=== PATIENT | male | born 1960 | race Caucasian/White ===

== ENCOUNTER 2020-05-09 18:52 | Inpatient (IN) | payer MEDICAID, SELFPAY ==
[2020-05-09 19:01] VITALS: BP 129/105; PULSE 121; RESP 18; TEMP 36.6; O2SAT 95; BMI 26.6
--- NOTE | 2020-05-09 19:10 | CT_ITS ---
EXAMINATION: CT ABDOMEN AND PELVIS WITH CONTRAST CLINICAL INFORMATION: Left upper quadrant pain, altered mental status, unclear history COMPARISON: None TECHNIQUE: Multidetector volumetric images were obtained from the superior aspect of the liver through the pubic symphysis following administration 85 mL of Omnipaque 350 intravenous contrast. Sagittal and coronal reformatted images were obtained on the technologist's workstation. Oral contrast: No This CT examination was performed using dose optimization techniques as appropriate, variously including the following: *Automated exposure control *Adjustment of mA and/or kV according to patient size (this includes techniques or standardized protocols for targeted exams where dose is matched to indication/reason for exam; i.e. extremities or head) *Use of iterative reconstruction technique DLP: 805 mGy-cm FINDINGS: LUNG BASES: Right lower lobe atelectasis/infiltrate is seen LIVER, GALLBLADDER, AND BILIARY TREE: The liver is normal in size, shape, and attenuation. No focal hepatic lesion or biliary ductal dilatation is present. The gallbladder is unremarkable with no evidence of radiopaque gallstones, gallbladder wall thickening, or obvious pericholecystic inflammatory changes. PANCREAS: Unremarkable. There is no evidence of pancreatitis. SPLEEN: Unremarkable. Tiny splenule is present. ADRENAL GLANDS: Unremarkable. KIDNEYS AND URETERS: The kidneys are normal in size, shape, and attenuation. No hydronephrosis, hydroureter, or calculi seen. No perinephric stranding. BLADDER: Unremarkable. GASTROINTESTINAL TRACT: The small and large bowel are unremarkable. The appendix is unremarkable. ABDOMINAL WALL: No significant hernia is appreciated. LYMPH NODES: Normal. VASCULAR: Unremarkable. PELVIC VISCERA: There is mild prostatic prominence. The seminal vesicles appear normal OSSEOUS STRUCTURES: Mild degenerative changes present throughout the spine most marked at L5-S1 with vacuum phenomena present CT/CT abdomen pelvis w con IMPRESSION: No acute abnormality in the abdomen pelvis. Right lower lobe atelectasis/infiltrate
--- NOTE | 2020-05-09 19:10 | ECG_ITS ---
Test Reason : ALTERED MENTAL Blood Pressure : / mmHG Vent. Rate : 114 BPM Atrial Rate : 114 BPM P-R Int : 138 ms QRS Dur : 080 ms QT Int : 346 ms P-R-T Axes : 069 037 016 degrees QTc Int : 476 ms Sinus tachycardia Otherwise normal ECG When compared with ECG of 03-OCT-2014 04:28, Vent. rate has increased BY 69 BPM Nonspecific T wave abnormality now evident in Inferior leads Referred By: Cydney Davis Electronically Signed By:Aba Reyes
--- NOTE | 2020-05-09 19:11 | CT_ITS ---
EXAMINATION: CT HEAD WITHOUT CONTRAST CLINICAL INFORMATION: Altered mental status COMPARISON: None TECHNIQUE: Contiguous axial imaging was performed from the skull base to vertex without intravenous administration of contrast. This CT examination was performed using dose optimization techniques as appropriate, variously including the following: *Automated exposure control *Adjustment of mA and/or kV according to patient size (this includes techniques or standardized protocols for targeted exams where dose is matched to indication/reason for exam; i.e. extremities or head) *Use of iterative reconstruction technique DLP: 682 mGy-cm FINDINGS: There is no evidence of acute intracranial hemorrhage or territorial infarction. No abnormal mass effect or midline shift is seen. [place] to white matter differentiation is well preserved. Periventricular and deep white matter hypodensities most consistent with chronic microangiopathy No extra-axial fluid collections are identified. There is mild prominence of the ventricles and sulci in keeping with underlying involutional change. There is no abnormal attenuation within the brain parenchyma. The osseous structures and soft tissues are normal. Mucosal thickening in the bilateral maxillary sinuses and ethmoid air cells CT/CT head/brain wo con IMPRESSION: No acute intracranial pathology. Mild microangiopathy and involutional change. Bilateral maxillary sinus and ethmoid air cell mucosal thickening.
--- NOTE | 2020-05-09 19:14 | ED.GENADULT ---
HPI - General Adult General Chief complaint: Altered Mental Status Stated complaint: abd pain Time Seen by Provider: 05/09/20 19:00 Source: EMS Mode of arrival: EMS Limitations: altered mental status History of Present Illness HPI narrative: Patient comes to the emergency room for unclear reason. According to EMS, the patient called EMS, the patient states that he called because he was feeling cold. According to EMS the patient called because he was having abdominal pain, on arrival patient denied abdominal pain. The patient stated to his nurse that he is seeing people. When I talked to him he denied it. Patient seems confused, very poor historian, answering questions inappropriately. For example, patient was asked if he knows where he is, patient answered yes, 200 dollars . Denies alcohol or drug use. Per patient's prior records, patient does have history of substance abuse. MD complaint: Altered mental status Related Data Allergies Allergy/AdvReac Type Severity Reaction Status Date / Time No Known Allergies Allergy Unverified 02/07/20 16:14 [No Known Allergies*] Review of Systems Review of Systems: Yes Unobtainable due to mental condition [facility] Past Medical History Medical History (Updated 05/10/20 @ 01:32 by Cydney Davis MD) Asthma Hyperlipidemia Substance abuse Social History Social History Advance Directives: No Advance Directives Information Provided: No Physical Exam Vital Signs: Vital Signs: Last Vital Signs Temp 98.0 F 05/10/20 00:45 Pulse 120 H 05/10/20 02:05 Resp 19 05/10/20 02:05 BP 118/75 05/10/20 02:05 Pulse Ox 99 05/10/20 02:05 Body Mass Index 26.6 Appearance: Alert. Oriented to person, no acute distress Eyes: Pupils equal, round and reactive to light. ENT: Pharynx normal. Poor dentition, dried mucosa Neck: Normal inspection. Neck supple. No lymph nodes noted. No crepitus CVS: Normal heart rate and rhythm. Pulses normal. Normal S1 and S2 Respiratory: No respiratory distress. Breath sounds normal. No Wheezing. No rales Abdomen: Soft , complaining of right upper quadrant pain, No rigidity. No distention. good BS x4 Skin: Skin warm and dry. Normal skin color. Normal skin turgor. Extremities: No lower extremity edema. No lower extremity edema. No Lacerations. No Rash Neuro: Cranial nerves 2-12 grossly intact, No slurred speech. Course Course Course Narrative: Patient being admitted. Patient remains altered, possibly secondary to urinary tract infection. Patient also has possible pneumonia which was regional is in the CT scan. Patient received levofloxacin which covers both, respiratory and UTI. At this time, patient's vitals within normal limits, blood pressure 127/85, heart rate 89, lactic acid 1.1. Sepsis is not suspected. Patient's troponin 1. Is elevated, no EKG changes. Second troponin pending. EKG 2. Has significant artifact but does not show any ST changes I discussed the patient with our hospitalist, it is unlikely that the patient's altered mental status is due to a UTI by itself, considering the patient's age. Our hospitalist Dr. Luna and I agreed that the patient needs a lumbar puncture. Patient was very combative and uncooperative for lumbar puncture, patient needed 150 mg of IV ketamine and 2 mg of Versed, patient tolerated well the sedation. Patient has already been admitted to hospitalist, the CSF fluid lab results are pending Patient's troponin 2. Is lower than the 1st troponin. Second EKG did not show any changes. Ammonia level 34, hepatic encephalopathy unlikely the cause of patient's altered mental status. Patient has elevated LFTs unclear of this are new versus old, we do not have any labs to compare to since 2007 Patient tested positive for COVID-19 Procedures Lumbar Puncture Time Out Performed: Yes Patient Position: right lateral decubitus Skin Prep: Povidone-Iodine 1% Local Anesthetic: lidocaine 1% Amount of anesthesia used (mL): 5 Spinal Needle Gauge: 22G Interspace Used: L4-L5 Fluid Initially Obtained: bloody Complications: traumatic tap Medical Decision Making Lab Data Result diagrams: 05/09/20 20:26 05/09/20 20:26 Labs: Lab Results 05/09/20 05/09/20 05/09/20 Range/Units 20:26 20:26 20:26 WBC 14.7 H (4.8-10.8) X10*3/uL RBC 5.67 (4.60-5.80) X10*6/uL Hgb 17.3 (14.0-18.0) g/dl Hct 52.5 H (42-52) % MCV 92.6 (80-98) fL MCH 30.5 (27.0-33.0) pg MCHC 33.0 (31.0-36.0) g/dl RDW 13.3 (11.0-16.0) % Plt Count 146 L (160-400) X10*3/uL MPV 11.2 (9.4-12.4) fL Immature Gran % (Auto) 0.5 H (0.0-0.4) % Neut % (Auto) 89.1 H (45-73) % Lymph % (Auto) 4.6 L (20-40) % [place] % (Auto) 5.6 (2-11) % Eos % (Auto) 0.1 (0-4) % Baso % (Auto) 0.1 (0-2) % Lymph # (Auto) 0.7 L (1.2-4.9) X10*3/uL [place] # (Auto) 0.8 (0.1-1.2) X10*3/uL Eos # (Auto) 0.0 (0.0-0.4) X10*3/uL Baso # (Auto) 0.0 (0.0-0.2) X10*3/uL Abs Immat Gran (auto) 0.08 H (0.00-0.03) X10*3/uL Absolute Neuts (auto) 13.1 H (2.0-8.3) X10*3/uL Absolute Nucleated RBC 0.000 (0.0-0.012) X10*3/uL Nucleated RBC % (auto) 0.0 (0.0-0.2) /100WBC PT 26.0 H (10.8-13.0) SEC INR 2.2 H (0.9-1.1) Sodium 149 H (135-145) mmol/L Potassium 4.5 (3.3-5.1) mmol/l Chloride 112 H (96-108) mmol/L Carbon Dioxide 19 L (22-29) mmol/L Anion Gap 23 H (12-20) BUN 42 H (9-16) mg/dL Creatinine 1.06 (0.5-1.4) mg/dL Estim Creat Clear Calc 68.5 Estimated GFR > 60 Random Glucose 159 H (60-115) mg/dL Lactic Acid (0.5-2.0) mmol/L Calcium 9.7 (8.4-10.2) mg/dL Total Bilirubin 5.4 H (0.0-1.0) mg/dL Direct Bilirubin 4.1 H (0.0-0.5) mg/dL AST 52 H (5-37) U/L ALT 75 H (0-40) U/L Alkaline Phosphatase 90 (39-117) U/L Ammonia (13-55) umol/L Troponin I High Sens (<3.5-35.0) ng/L Total Protein 8.8 H (6.5-8.0) g/dL Albumin 4.7 (3.5-5.0) g/dL Lipase (8-78) U/L Urine Color Urine Appearance Urine pH (5.0-8.0) Ur Specific [place] (1.005-1.025) Urine Protein (NEG-TRACE) MG/DL Urine Glucose (UA) (NEG) MG/DL Urine Ketones (NEG) MG/DL Urine Blood (NEG) Urine Nitrite (NEG) Ur Leukocyte Esterase (NEG) Urine RBC (0) /HPF Urine WBC (0-4) /HPF Ur Squamous Epith Cells /LPF Urine Bacteria /LPF Hyaline Casts /LPF Granular Casts /LPF Urine Opiates Screen (Not Detect) Ur Barbiturates Screen (Not Detect) Ur Phencyclidine Scrn (Not Detect) Ur Amphetamines Screen (Not Detect) U Benzodiazepines Scrn (Not Detect) Urine Cocaine Screen (Not Detect) U Marijuana (THC) Screen (Not Detect) Ethyl Alcohol mg/dL COVID-19 (NIC) (Negative) COVID-19 Clin Com 05/09/20 05/09/20 05/09/20 Range/Units 20:26 20:26 20:26 WBC (4.8-10.8) X10*3/uL RBC (4.60-5.80) X10*6/uL Hgb (14.0-18.0) g/dl Hct (42-52) % MCV (80-98) fL MCH (27.0-33.0) pg MCHC (31.0-36.0) g/dl RDW (11.0-16.0) % Plt Count (160-400) X10*3/uL MPV (9.4-12.4) fL Immature Gran % (Auto) (0.0-0.4) % Neut % (Auto) (45-73) % Lymph % (Auto) (20-40) % [place] % (Auto) (2-11) % Eos % (Auto) (0-4) % Baso % (Auto) (0-2) % Lymph # (Auto) (1.2-4.9) X10*3/uL [place] # (Auto) (0.1-1.2) X10*3/uL Eos # (Auto) (0.0-0.4) X10*3/uL Baso # (Auto) (0.0-0.2) X10*3/uL Abs Immat Gran (auto) (0.00-0.03) X10*3/uL Absolute Neuts (auto) (2.0-8.3) X10*3/uL Absolute Nucleated RBC (0.0-0.012) X10*3/uL Nucleated RBC % (auto) (0.0-0.2) /100WBC PT (10.8-13.0) SEC INR (0.9-1.1) Sodium (135-145) mmol/L Potassium (3.3-5.1) mmol/l Chloride (96-108) mmol/L Carbon Dioxide (22-29) mmol/L Anion Gap (12-20) BUN (9-16) mg/dL Creatinine (0.5-1.4) mg/dL Estim Creat Clear Calc Estimated GFR Random Glucose (60-115) mg/dL Lactic Acid 1.1 (0.5-2.0) mmol/L Calcium (8.4-10.2) mg/dL Total Bilirubin (0.0-1.0) mg/dL Direct Bilirubin (0.0-0.5) mg/dL AST (5-37) U/L ALT (0-40) U/L Alkaline Phosphatase (39-117) U/L Ammonia (13-55) umol/L Troponin I High Sens 113.8 H (<3.5-35.0) ng/L Total Protein (6.5-8.0) g/dL Albumin (3.5-5.0) g/dL Lipase 196 H (8-78) U/L Urine Color Urine Appearance Urine pH (5.0-8.0) Ur Specific [place] (1.005-1.025) Urine Protein (NEG-TRACE) MG/DL Urine Glucose (UA) (NEG) MG/DL Urine Ketones (NEG) MG/DL Urine Blood (NEG) Urine Nitrite (NEG) Ur Leukocyte Esterase (NEG) Urine RBC (0) /HPF Urine WBC (0-4) /HPF Ur Squamous Epith Cells /LPF Urine Bacteria /LPF Hyaline Casts /LPF Granular Casts /LPF Urine Opiates Screen (Not Detect) Ur Barbiturates Screen (Not Detect) Ur Phencyclidine Scrn (Not Detect) Ur Amphetamines Screen (Not Detect) U Benzodiazepines Scrn (Not Detect) Urine Cocaine Screen (Not Detect) U Marijuana (THC) Screen (Not Detect) Ethyl Alcohol mg/dL COVID-19 (NIC) (Negative) COVID-19 Clin Com 05/09/20 05/09/20 05/09/20 Range/Units 20:26 22:18 22:18 WBC (4.8-10.8) X10*3/uL RBC (4.60-5.80) X10*6/uL Hgb (14.0-18.0) g/dl Hct (42-52) % MCV (80-98) fL MCH (27.0-33.0) pg MCHC (31.0-36.0) g/dl RDW (11.0-16.0) % Plt Count (160-400) X10*3/uL MPV (9.4-12.4) fL Immature Gran % (Auto) (0.0-0.4) % Neut % (Auto) (45-73) % Lymph % (Auto) (20-40) % [place] % (Auto) (2-11) % Eos % (Auto) (0-4) % Baso % (Auto) (0-2) % Lymph # (Auto) (1.2-4.9) X10*3/uL [place] # (Auto) (0.1-1.2) X10*3/uL Eos # (Auto) (0.0-0.4) X10*3/uL Baso # (Auto) (0.0-0.2) X10*3/uL Abs Immat Gran (auto) (0.00-0.03) X10*3/uL Absolute Neuts (auto) (2.0-8.3) X10*3/uL Absolute Nucleated RBC (0.0-0.012) X10*3/uL Nucleated RBC % (auto) (0.0-0.2) /100WBC PT (10.8-13.0) SEC INR (0.9-1.1) Sodium (135-145) mmol/L Potassium (3.3-5.1) mmol/l Chloride (96-108) mmol/L Carbon Dioxide (22-29) mmol/L Anion Gap (12-20) BUN (9-16) mg/dL Creatinine (0.5-1.4) mg/dL Estim Creat Clear Calc Estimated GFR Random Glucose (60-115) mg/dL Lactic Acid (0.5-2.0) mmol/L Calcium (8.4-10.2) mg/dL Total Bilirubin (0.0-1.0) mg/dL Direct Bilirubin (0.0-0.5) mg/dL AST (5-37) U/L ALT (0-40) U/L Alkaline Phosphatase (39-117) U/L Ammonia (13-55) umol/L Troponin I High Sens (<3.5-35.0) ng/L Total Protein (6.5-8.0) g/dL Albumin (3.5-5.0) g/dL Lipase (8-78) U/L Urine Color [place] Urine Appearance CLEAR Urine pH 5.0 (5.0-8.0) Ur Specific [place] 1.025 (1.005-1.025) Urine Protein 1+ H (NEG-TRACE) MG/DL Urine Glucose (UA) 100 H (NEG) MG/DL Urine Ketones 15 (NEG) MG/DL Urine Blood 1+ H (NEG) Urine Nitrite POS H (NEG) Ur Leukocyte Esterase NEG (NEG) Urine RBC 1-4 (0) /HPF Urine WBC 1-4 (0-4) /HPF Ur Squamous Epith Cells TRACE /LPF Urine Bacteria 1+ /LPF Hyaline Casts 0-2 /LPF Granular Casts 1-4 /LPF Urine Opiates Screen Not Detected (Not Detect) Ur Barbiturates Screen Not Detected (Not Detect) Ur Phencyclidine Scrn Not Detected (Not Detect) Ur Amphetamines Screen Not Detected (Not Detect) U Benzodiazepines Scrn Not Detected (Not Detect) Urine Cocaine Screen Not Detected (Not Detect) U Marijuana (THC) Screen Not Detected (Not Detect) Ethyl Alcohol < 10 mg/dL COVID-19 (NIC) (Negative) COVID-19 Clin Com 05/09/20 05/09/20 05/09/20 Range/Units 23:55 23:55 23:55 WBC (4.8-10.8) X10*3/uL RBC (4.60-5.80) X10*6/uL Hgb (14.0-18.0) g/dl Hct (42-52) % MCV (80-98) fL MCH (27.0-33.0) pg MCHC (31.0-36.0) g/dl RDW (11.0-16.0) % Plt Count (160-400) X10*3/uL MPV (9.4-12.4) fL Immature Gran % (Auto) (0.0-0.4) % Neut % (Auto) (45-73) % Lymph % (Auto) (20-40) % [place] % (Auto) (2-11) % Eos % (Auto) (0-4) % Baso % (Auto) (0-2) % Lymph # (Auto) (1.2-4.9) X10*3/uL [place] # (Auto) (0.1-1.2) X10*3/uL Eos # (Auto) (0.0-0.4) X10*3/uL Baso # (Auto) (0.0-0.2) X10*3/uL Abs Immat Gran (auto) (0.00-0.03) X10*3/uL Absolute Neuts (auto) (2.0-8.3) X10*3/uL Absolute Nucleated RBC (0.0-0.012) X10*3/uL Nucleated RBC % (auto) (0.0-0.2) /100WBC PT (10.8-13.0) SEC INR (0.9-1.1) Sodium (135-145) mmol/L Potassium (3.3-5.1) mmol/l Chloride (96-108) mmol/L Carbon Dioxide (22-29) mmol/L Anion Gap (12-20) BUN (9-16) mg/dL Creatinine (0.5-1.4) mg/dL Estim Creat Clear Calc Estimated GFR Random Glucose (60-115) mg/dL Lactic Acid (0.5-2.0) mmol/L Calcium (8.4-10.2) mg/dL Total Bilirubin (0.0-1.0) mg/dL Direct Bilirubin (0.0-0.5) mg/dL AST (5-37) U/L ALT (0-40) U/L Alkaline Phosphatase (39-117) U/L Ammonia 34 (13-55) umol/L Troponin I High Sens 97.2 H (<3.5-35.0) ng/L Total Protein (6.5-8.0) g/dL Albumin (3.5-5.0) g/dL Lipase (8-78) U/L Urine Color Urine Appearance Urine pH (5.0-8.0) Ur Specific [place] (1.005-1.025) Urine Protein (NEG-TRACE) MG/DL Urine Glucose (UA) (NEG) MG/DL Urine Ketones (NEG) MG/DL Urine Blood (NEG) Urine Nitrite (NEG) Ur Leukocyte Esterase (NEG) Urine RBC (0) /HPF Urine WBC (0-4) /HPF Ur Squamous Epith Cells /LPF Urine Bacteria /LPF Hyaline Casts /LPF Granular Casts /LPF Urine Opiates Screen (Not Detect) Ur Barbiturates Screen (Not Detect) Ur Phencyclidine Scrn (Not Detect) Ur Amphetamines Screen (Not Detect) U Benzodiazepines Scrn (Not Detect) Urine Cocaine Screen (Not Detect) U Marijuana (THC) Screen (Not Detect) Ethyl Alcohol mg/dL COVID-19 (NIC) Positive A (Negative) COVID-19 Clin Com See Note Imaging Data CT scan - head: Radiologist's impression: There is no evidence of acute intracranial hemorrhage or territorial infarction. No abnormal mass effect or midline shift is seen. [place] to white matter differentiation is well preserved. Periventricular and deep white matter hypodensities most consistent with chronic microangiopathy No extra-axial fluid collections are identified. There is mild prominence of the ventricles and sulci in keeping with underlying involutional change. There is no abnormal attenuation within the brain parenchyma. The osseous structures and soft tissues are normal. Mucosal thickening in the bilateral maxillary sinuses and ethmoid air cells CT/CT head/brain wo con IMPRESSION: No acute intracranial pathology. Mild microangiopathy and involutional change. Bilateral maxillary sinus and ethmoid air cell mucosal thickening. CT scan - abdomen: Radiologist's impression: LUNG BASES: Right lower lobe atelectasis/infiltrate is seen LIVER, GALLBLADDER, AND BILIARY TREE: The liver is normal in size, shape, and attenuation. No focal hepatic lesion or biliary ductal dilatation is present. The gallbladder is unremarkable with no evidence of radiopaque gallstones, gallbladder wall thickening, or obvious pericholecystic inflammatory changes. PANCREAS: Unremarkable. There is no evidence of pancreatitis. SPLEEN: Unremarkable. Tiny splenule is present. ADRENAL GLANDS: Unremarkable. KIDNEYS AND URETERS: The kidneys are normal in size, shape, and attenuation. No hydronephrosis, hydroureter, or calculi seen. No perinephric stranding. BLADDER: Unremarkable. GASTROINTESTINAL TRACT: The small and large bowel are unremarkable. The appendix is unremarkable. ABDOMINAL WALL: No significant hernia is appreciated. LYMPH NODES: Normal. VASCULAR: Unremarkable. PELVIC VISCERA: There is mild prostatic prominence. The seminal vesicles appear normal OSSEOUS STRUCTURES: Mild degenerative changes present throughout the spine most marked at L5-S1 with vacuum phenomena present CT/CT abdomen pelvis w con IMPRESSION: No acute abnormality in the abdomen pelvis. Right lower lobe atelectasis/infiltrate ECG Data Attestation: I personally reviewed and interpreted this ECG as follows: (Heart rate 114, sinus tachycardia, QTC 476, no ST segment depressions or elevations. EKG 2: Heart rate 92, no ST changes, poor quality EKG, QTC 442 ) Critical Care Time Critical Care Time Total Critical Care Time: 60 Discharge Plan Discharge Clinical Impression: Acute UTI, Elevated LFTs, COVID-19 Altered mental status Qualifiers: Altered mental status type: unspecified Qualified Code(s): R41.82 - Altered mental status, unspecified Pneumonia Qualifiers: Pneumonia type: due to unspecified organism Laterality: unspecified laterality Lung location: unspecified part of lung Qualified Code(s): J18.9 - Pneumonia, unspecified organism Patient Disposition: Admitted As Inpatient
[2020-05-09 20:00] VITALS: BP 119/87; PULSE 113; RESP 18; TEMP 36.6; O2SAT 96
[2020-05-09] MEDS: 0.9 % Sodium Chloride 1,000 ML 999 ML IVCONT ×2 (20:29→21:46)
[2020-05-09 20:36] LABS: Basophils Percent Auto 0.1 % (0-2); Eosinophils Percent Auto 0.1 % (0-4); Hematocrit 52.5 % (42-52); Hemoglobin 17.3 g/dl (14.0-18.0); Imm Gran Abs Auto 0.08 X10*3/uL (0.00-0.03); Imm Gran Pct Auto 0.5 % (0.0-0.4); Lymphocytes Absolute Auto 0.7 X10*3/uL (1.2-4.9); Lymphocytes Percent Auto 4.6 % (20-40); MANUAL DIFF FLAG NO; Mean Corpuscular Hemoglobin 30.5 pg (27.0-33.0); Mean Corpuscular Volume 92.6 fL (80-98); Mean Platelet Volume 11.2 fL (9.4-12.4); Monocytes Absolute Auto 0.8 X10*3/uL (0.1-1.2); Monocytes Percent Auto 5.6 % (2-11); Neutrophils Absolute Auto 13.1 X10*3/uL (2.0-8.3); Neutrophils Percent Auto 89.1 % (45-73); Platelet Count 146 X10*3/uL (160-400); Red Blood Count 5.67 X10*6/uL (4.60-5.80); Red Cell Distribution Width 13.3 % (11.0-16.0); SCAN SMEAR FLAG 1; White Blood Count 14.7 X10*3/uL (4.8-10.8)
[2020-05-09 20:44] LABS: INTERNATIONAL NORM RATIO 2.2 (0.9-1.1)
[2020-05-09 20:57] LABS: Lactic Acid 1.1 mmol/L (0.5-2.0)
[2020-05-09 20:58] LABS: Ethanol < 10 mg/dL
[2020-05-09 21:00] LABS: Alanine Aminotransferase 75 U/L (0-40); Albumin Level 4.7 g/dL (3.5-5.0); Alkaline Phosphatase 90 U/L (39-117); Anion Gap 23 (12-20); Aspartate Amino Transferase 52 U/L (5-37); Bilirubin Direct 4.1 mg/dL (0.0-0.5); Bilirubin Total 5.4 mg/dL (0.0-1.0); Blood Urea Nitrogen 42 mg/dL (9-16); Calcium 9.7 mg/dL (8.4-10.2); Carbon Dioxide 19 mmol/L (22-29); Chloride 112 mmol/L (96-108); Creatinine Clr Calc Pharmacy 68.5; Estimated Glomerular Filt Rate > 60; Glucose Random 159 mg/dL (60-115); Potassium 4.5 mmol/l (3.3-5.1); Sodium 149 mmol/L (135-145); Total Protein 8.8 g/dL (6.5-8.0)
[2020-05-09 21:12] LABS: Troponin-I High Sensitivity 113.8 ng/L (<3.5-35.0)
[2020-05-09 21:15] LABS: Lipase 196 U/L (8-78)
--- NOTE | 2020-05-09 21:31 | ECG_ITS ---
Test Reason : REPEAT Blood Pressure : / mmHG Vent. Rate : 092 BPM Atrial Rate : 093 BPM P-R Int : 000 ms QRS Dur : 074 ms QT Int : 358 ms P-R-T Axes : 000 -02 044 degrees QTc Int : 442 ms Poor data quality Normal sinus rhythm When compared with ECG of 09-MAY-2020 20:04, No significant changes seen Referred By: Cydney Davis Electronically Signed By:Aba Reyes
[2020-05-09] MEDS: iohexoL 350 MG/ML 100 ML INFUS..BTL IV (21:35)
[2020-05-09 22:00] VITALS: BP 127/85; PULSE 93; RESP 18; TEMP 36.5; O2SAT 95
[2020-05-09] MEDS: levoFLOXacin/D5W 500 MG/100 ML PIGGYBACK 100 MG IV (22:18)
[2020-05-09 22:35] LABS: Glucose Urine UA 100 MG/DL (NEG); Leukocyte Esterase Urine NEG (NEG); Nitrite Urine POS (NEG); Specific Gravity - Urine 1.025 (1.005-1.025); Urine Blood 1+ (NEG); Urine Ketones 15 MG/DL (NEG); Urine Protein 1+ MG/DL (NEG-TRACE)
[2020-05-09 22:38] LABS: Appearance Urine CLEAR; Color Urine AMBER
[2020-05-09 22:48] LABS: Amphetamine Screen Urine Not Detected (Not Detect); Barbiturates, Urine Not Detected (Not Detect); Benzodiazepines Screen Urine Not Detected (Not Detect); Cannabinoid Screen Urine Not Detected (Not Detect); Cocaine Screen Urine Not Detected (Not Detect); Opiate Screen Urine Not Detected (Not Detect); Phencyclidine Screen Urine Not Detected (Not Detect)
[2020-05-09 23:01] LABS: Bacteria Urine 1+ /LPF; Hyaline Casts Urine 0-2 /LPF; Squamous Epithelial Cell Urine TRACE /LPF
[2020-05-10] VITALS (14 sets, daily range): BP systolic 105–135; BP diastolic 62–88; PULSE 64–138; RESP 16–22; TEMP 36.2–37.2; O2SAT 96–100
[2020-05-10 00:16] LABS: IDNOW Serial# 9DD0AD1C
[2020-05-10 00:17] LABS: Ammonia 34 umol/L (13-55)
[2020-05-10 00:19] LABS: COVID-19 Test Positive (Negative)
--- NOTE | 2020-05-10 00:21 | XR_ITS ---
EXAMINATION: CHEST 1 VIEW CLINICAL INFORMATION: Covid positivity. COMPARISON: None. TECHNIQUE: An AP view of the chest is provided. FINDINGS: The cardiac silhouette is not enlarged. The mediastinal and hilar contours are unremarkable. There are neither pleural effusions nor pneumothoraces. There is faint opacification overlying the right lower lung zone. The osseous structures are unremarkable. XR/XR chest 1V IMPRESSION: Faint opacification overlying the right lower lung zone could correspond to overlying artifact or represent a small infiltrate. Recommendation is for a followup chest series to be obtained following treatment and/or resolution of symptoms to assure resolution of this appearance.
[2020-05-10 00:35] LABS: Troponin-I High Sensitivity 97.2 ng/L (<3.5-35.0)
--- NOTE | 2020-05-10 00:50 | PC.NURSE ---
PER MD PLAN FOR CONSCIOUS SEDATION FOR LP D/T UNRESOLOVED AMS. PER MD PT UNABLE TO SIGN FOR CONSENT
[2020-05-10] MEDS: Ketamine HCl/NS 50 MG/5 ML SYRINGE 150 MG IVPUSH (00:54)
[2020-05-10] MEDS: Midazolam HCl/PF 2 MG/2 ML VIAL IVPUSH (01:07)
[2020-05-10 02:40] LABS: Glucose CSF 79 mg/dL; Total Protein CSF 61.9 mg/dL (15-45)
[2020-05-10 02:43] LABS: CSF Appearance Clear, Colorless; CSF Tube # 2
[2020-05-10 03:43] LABS: Appearance CSF CLEAR; CSF Tube # 4; Color CSF COLORLESS; Red Blood Cell CSF 71 MM*3; White Blood Cell CSF 1 MM*3
[2020-05-10 03:51] LABS: CSF Monos 47 %; Lymphocytes CSF 50 %; Neutrophils CSF 3 %
--- NOTE | 2020-05-10 03:57 | PM.IMHP ---
History of Present Illness Date of Service: 05/10/20 Chief Complaint: AMS 60 y/o male with unknown PMHX who presented to the ED with AMS. Patient is unable to provide with any significant medical hx but per EMS patient called 911 as he was feeling cold but later on started c/o multiple symptoms including abdominal pain and seeing things that were not there . On presentation to the ED patient was noted to be tachycardic 112 and tachypneic 22, WBC of 14.7 on Blood work with platelet of 146, INR of 2.2, Na of 149, AG of 23 with cloride of 112, Elevated LFT's (direct bili of 4.1), Troponin plateau of 113--?97, UA positive for UTI, covid 19 infection positive, CT head negative for any acute intracranial pathology, CT abdomen unremarkable, CXR showing RLL PNA. LP was performed by ED attending and decision for admission was given. Patient seen and examined at the bedside, laying down in bed in no acute distress. No hx is able to be obtained given patient was sedated for LP by ED attending but ED reporting patient is very confused since presentation and is unable to provide with any meaninful hx. PMHx: Chronic venous insufficiency, HLP, Substance abuse, asthma, arrhythmia, atypical chest pain PSX: none Toxic habits: Substance abuse, no hx of smoking in the past Review of Systems Constitutional: Constitutional: Reports other (unable to be obtained given patient's mental condition ) [facility] Medical History Asthma Hyperlipidemia Substance abuse Social History Advance Directives: No Advance Directives Information Provided: No Meds Allergies Allergy/AdvReac Type Severity Reaction Status Date / Time No Known Allergies Allergy Unverified 02/07/20 16:14 [No Known Allergies*] Physical Exam Vital Signs and Narrative: Vital Signs: Last Vital Signs Temp 98.0 F 05/10/20 02:09 Pulse 74 05/10/20 02:52 Resp 19 05/10/20 02:09 BP 120/76 05/10/20 02:52 Pulse Ox 100 05/10/20 02:52 Body Mass Index 26.6 Const: General: comfortable and no acute distress HENMT: Head: Yes normal to inspection Eyes: General: appearance normal, both eyes and all related structures Neck: Yes normal visual inspection Resp: Effort & Inspection: normal respiratory effort Cardio: Jugular venous distension: no JVD Rate: regular rate Rhythm: regular rhythm Heart sounds: S1 normal heart sound present and S2 normal heart sound present Skin: General skin exam: no rashes or lesions noted Neuro: General: other (sedated) Results Labs CBC and Chem 7: 05/09/20 20:26 05/09/20 20:26 Labs: Laboratory Results - last 24 hr 05/09/20 05/09/20 05/09/20 20:26 20:26 20:26 MCV 92.6 MCH 30.5 MCHC 33.0 RDW 13.3 Plt Count 146 L MPV 11.2 Immature Gran % (Auto) 0.5 H Neut % (Auto) 89.1 H Lymph % (Auto) 4.6 L [place] % (Auto) 5.6 Eos % (Auto) 0.1 Baso % (Auto) 0.1 Lymph # (Auto) 0.7 L [place] # (Auto) 0.8 Eos # (Auto) 0.0 Baso # (Auto) 0.0 Abs Immat Gran (auto) 0.08 H Absolute Neuts (auto) 13.1 H Absolute Nucleated RBC 0.000 Nucleated RBC % (auto) 0.0 PT 26.0 H INR 2.2 H Anion Gap 23 H Estim Creat Clear Calc 68.5 Estimated GFR > 60 Random Glucose 159 H Lactic Acid Calcium 9.7 Total Bilirubin 5.4 H Direct Bilirubin 4.1 H AST 52 H ALT 75 H Alkaline Phosphatase 90 Ammonia Troponin I High Sens Total Protein 8.8 H Albumin 4.7 Lipase Urine Color Urine Appearance Urine pH Ur Specific [place] Urine Protein Urine Glucose (UA) Urine Ketones Urine Blood Urine Nitrite Ur Leukocyte Esterase Urine RBC Urine WBC Ur Squamous Epith Cells Urine Bacteria Hyaline Casts Granular Casts CSF Tube Number CSF Volume CSF Appearance CSF Color CSF WBC CSF RBC CSF Neutrophils CSF Lymphocytes CSF Monocytes % CSF Appearance (b) CSF Glucose CSF Total Protein Urine Opiates Screen Ur Barbiturates Screen Ur Phencyclidine Scrn Ur Amphetamines Screen U Benzodiazepines Scrn Urine Cocaine Screen U Marijuana (THC) Screen Ethyl Alcohol COVID-19 (NIC) COVID-19 Clin Com 05/09/20 05/09/20 05/09/20 20:26 20:26 20:26 MCV MCH MCHC RDW Plt Count MPV Immature Gran % (Auto) Neut % (Auto) Lymph % (Auto) [place] % (Auto) Eos % (Auto) Baso % (Auto) Lymph # (Auto) [place] # (Auto) Eos # (Auto) Baso # (Auto) Abs Immat Gran (auto) Absolute Neuts (auto) Absolute Nucleated RBC Nucleated RBC % (auto) PT INR Anion Gap Estim Creat Clear Calc Estimated GFR Random Glucose Lactic Acid 1.1 Calcium Total Bilirubin Direct Bilirubin AST ALT Alkaline Phosphatase Ammonia Troponin I High Sens 113.8 H Total Protein Albumin Lipase 196 H Urine Color Urine Appearance Urine pH Ur Specific [place] Urine Protein Urine Glucose (UA) Urine Ketones Urine Blood Urine Nitrite Ur Leukocyte Esterase Urine RBC Urine WBC Ur Squamous Epith Cells Urine Bacteria Hyaline Casts Granular Casts CSF Tube Number CSF Volume CSF Appearance CSF Color CSF WBC CSF RBC CSF Neutrophils CSF Lymphocytes CSF Monocytes % CSF Appearance (b) CSF Glucose CSF Total Protein Urine Opiates Screen Ur Barbiturates Screen Ur Phencyclidine Scrn Ur Amphetamines Screen U Benzodiazepines Scrn Urine Cocaine Screen U Marijuana (THC) Screen Ethyl Alcohol COVID-19 (NIC) COVID-19 Clin Com 05/09/20 05/09/20 05/09/20 20:26 22:18 22:18 MCV MCH MCHC RDW Plt Count MPV Immature Gran % (Auto) Neut % (Auto) Lymph % (Auto) [place] % (Auto) Eos % (Auto) Baso % (Auto) Lymph # (Auto) [place] # (Auto) Eos # (Auto) Baso # (Auto) Abs Immat Gran (auto) Absolute Neuts (auto) Absolute Nucleated RBC Nucleated RBC % (auto) PT INR Anion Gap Estim Creat Clear Calc Estimated GFR Random Glucose Lactic Acid Calcium Total Bilirubin Direct Bilirubin AST ALT Alkaline Phosphatase Ammonia Troponin I High Sens Total Protein Albumin Lipase Urine Color [place] Urine Appearance CLEAR Urine pH 5.0 Ur Specific [place] 1.025 Urine Protein 1+ H Urine Glucose (UA) 100 H Urine Ketones 15 Urine Blood 1+ H Urine Nitrite POS H Ur Leukocyte Esterase NEG Urine RBC 1-4 Urine WBC 1-4 Ur Squamous Epith Cells TRACE Urine Bacteria 1+ Hyaline Casts 0-2 Granular Casts 1-4 CSF Tube Number CSF Volume CSF Appearance CSF Color CSF WBC CSF RBC CSF Neutrophils CSF Lymphocytes CSF Monocytes % CSF Appearance (b) CSF Glucose CSF Total Protein Urine Opiates Screen Not Detected Ur Barbiturates Screen Not Detected Ur Phencyclidine Scrn Not Detected Ur Amphetamines Screen Not Detected U Benzodiazepines Scrn Not Detected Urine Cocaine Screen Not Detected U Marijuana (THC) Screen Not Detected Ethyl Alcohol < 10 COVID-19 (NIC) COVID-19 Clin Com 05/09/20 05/09/20 05/09/20 23:55 23:55 23:55 MCV MCH MCHC RDW Plt Count MPV Immature Gran % (Auto) Neut % (Auto) Lymph % (Auto) [place] % (Auto) Eos % (Auto) Baso % (Auto) Lymph # (Auto) [place] # (Auto) Eos # (Auto) Baso # (Auto) Abs Immat Gran (auto) Absolute Neuts (auto) Absolute Nucleated RBC Nucleated RBC % (auto) PT INR Anion Gap Estim Creat Clear Calc Estimated GFR Random Glucose Lactic Acid Calcium Total Bilirubin Direct Bilirubin AST ALT Alkaline Phosphatase Ammonia 34 Troponin I High Sens 97.2 H Total Protein Albumin Lipase Urine Color Urine Appearance Urine pH Ur Specific [place] Urine Protein Urine Glucose (UA) Urine Ketones Urine Blood Urine Nitrite Ur Leukocyte Esterase Urine RBC Urine WBC Ur Squamous Epith Cells Urine Bacteria Hyaline Casts Granular Casts CSF Tube Number CSF Volume CSF Appearance CSF Color CSF WBC CSF RBC CSF Neutrophils CSF Lymphocytes CSF Monocytes % CSF Appearance (b) CSF Glucose CSF Total Protein Urine Opiates Screen Ur Barbiturates Screen Ur Phencyclidine Scrn Ur Amphetamines Screen U Benzodiazepines Scrn Urine Cocaine Screen U Marijuana (THC) Screen Ethyl Alcohol COVID-19 (NIC) Positive A COVID-19 Clin Com See Note 05/10/20 05/10/20 01:25 01:25 MCV MCH MCHC RDW Plt Count MPV Immature Gran % (Auto) Neut % (Auto) Lymph % (Auto) [place] % (Auto) Eos % (Auto) Baso % (Auto) Lymph # (Auto) [place] # (Auto) Eos # (Auto) Baso # (Auto) Abs Immat Gran (auto) Absolute Neuts (auto) Absolute Nucleated RBC Nucleated RBC % (auto) PT INR Anion Gap Estim Creat Clear Calc Estimated GFR Random Glucose Lactic Acid Calcium Total Bilirubin Direct Bilirubin AST ALT Alkaline Phosphatase Ammonia Troponin I High Sens Total Protein Albumin Lipase Urine Color Urine Appearance Urine pH Ur Specific [place] Urine Protein Urine Glucose (UA) Urine Ketones Urine Blood Urine Nitrite Ur Leukocyte Esterase Urine RBC Urine WBC Ur Squamous Epith Cells Urine Bacteria Hyaline Casts Granular Casts CSF Tube Number 4 2 CSF Volume 1.0 CSF Appearance CLEAR CSF Color COLORLESS CSF WBC 1 CSF RBC 71 CSF Neutrophils 3 CSF Lymphocytes 50 CSF Monocytes % 47 CSF Appearance (b) Clear, Colorless CSF Glucose 79 CSF Total Protein 61.9 H Urine Opiates Screen Ur Barbiturates Screen Ur Phencyclidine Scrn Ur Amphetamines Screen U Benzodiazepines Scrn Urine Cocaine Screen U Marijuana (THC) Screen Ethyl Alcohol COVID-19 (NIC) COVID-19 Clin Com Imaging Radiologist's Impressions: Impressions Abdomen/Pelvis CT 05/09/20 19:10 IMPRESSION: No acute abnormality in the abdomen pelvis. Right lower lobe atelectasis/infiltrate Head CT 05/09/20 19:11 IMPRESSION: No acute intracranial pathology. Mild microangiopathy and involutional change. Bilateral maxillary sinus and ethmoid air cell mucosal thickening. Chest X-Ray 05/10/20 00:21 IMPRESSION: Faint opacification overlying the right lower lung zone could correspond to overlying artifact or represent a small infiltrate. Recommendation is for a followup chest series to be obtained following treatment and/or resolution of symptoms to assure resolution of this appearance. Assessment and Plan (1) Sepsis: Status: Acute Keep MAP >65 mmHg Continue with Zosyn for gram neg and pseudomonal coverage Follow up BCx and Ucx Follow up LP studies to r/o meningitis Continue with IV hydration (LR) given elevated AG due to hyperchloremia Monitor renal function and electrolytes closely Infectious disease consult in the am Neurology consult in the am (2) COVID-19: Status: Acute as above (3) Acute UTI: Status: Acute as above (4) Hypernatremia: Status: Acute NA of 149 likely due to dehydration Continue with LR as ordered for gentle hydration
--- NOTE | 2020-05-10 04:34 | PC.NURSE ---
attempted to speak to floor. awaiting call back.
[2020-05-10] MEDS: Heparin Sodium,Porcine 5,000 UNIT/ML VIAL 5000 UNIT SUBCUT (06:12)
[2020-05-10] MEDS: Piperacillin Sodium/Tazobactam 3.375 GM in 0.9 % Sodium Chloride 50 ML IV ×3 (06:12→18:22)
[2020-05-10] MEDS: Lactated Ringers 1,000 ML 100 ML IVCONT (06:36)
[2020-05-10] MEDS: 0.9 % Sodium Chloride Flush 3 ML SYRINGE IVFLUSH ×3 (08:00→19:59)
[2020-05-10 09:04] LABS: Mean Corpuscular HGB Conc 31.6 g/dl (31.0-36.0); Mean Corpuscular Hemoglobin 30.1 pg (27.0-33.0); PLT CLUMP 1
[2020-05-10 09:06] LABS: Hematocrit 45.2 % (42-52); Hemoglobin 14.3 g/dl (14.0-18.0); Mean Corpuscular Volume 95.2 fL (80-98); Mean Platelet Volume 10.9 fL (9.4-12.4); Platelet Count 117 X10*3/uL (160-400); Red Blood Count 4.75 X10*6/uL (4.60-5.80); Red Cell Distribution Width 13.4 % (11.0-16.0); White Blood Count 9.4 X10*3/uL (4.8-10.8)
[2020-05-10 09:22] LABS: INTERNATIONAL NORM RATIO 2.1 (0.9-1.1); Prothrombin Time 25.2 SEC (10.8-13.0)
[2020-05-10 09:33] LABS: Alanine Aminotransferase 60 U/L (0-40); Albumin Level 3.7 g/dL (3.5-5.0); Alkaline Phosphatase 71 U/L (39-117); Aspartate Amino Transferase 41 U/L (5-37); Bilirubin Direct 2.6 mg/dL (0.0-0.5); Bilirubin Total 3.6 mg/dL (0.0-1.0)
[2020-05-10 09:35] LABS: Anion Gap 17 (12-20); Blood Urea Nitrogen 30 mg/dL (9-16); Calcium 8.5 mg/dL (8.4-10.2); Carbon Dioxide 21 mmol/L (22-29); Chloride 117 mmol/L (96-108); Creatinine Clr Calc Pharmacy 79.8; Estimated Glomerular Filt Rate > 60; Glucose Random 125 mg/dL (60-115); Potassium 4.6 mmol/l (3.3-5.1); Sodium 150 mmol/L (135-145)
[2020-05-10 09:49] LABS: Procalcitonin 0.12 ng/mL
--- NOTE | 2020-05-10 13:21 | HO.PM.IMPN ---
Subjective Subjective Date of Service: 05/10/20 Interval History: seen and examined remains confused know hes in [place] denies any complaints ROS unreliable Physical Exam Vital Signs: Vital Signs: Last Vital Signs Temp 97.2 F 05/10/20 11:20 Pulse 64 05/10/20 11:20 Resp 18 05/10/20 11:20 BP 110/80 05/10/20 11:20 Pulse Ox 97 05/10/20 11:20 Body Mass Index 26.6 Const: Other: General - no acute distress, appears comfortable Cardiovascular - regular rate and rhythm, S1-S2 Lungs - normal respiratory effort, clear to auscultation bilaterally, no wheezing Abdomen - soft, nontender, no rebound or guarding Extremities - no edema bilaterally Neuro - awake and alert, no focal deficits, disoriented Objective Data Current Medications Generic Name Dose Route Start Last Admin Trade Name Freq PRN Reason Stop Dose Admin Folic Acid 1 mg 05/11/20 09:00 Folic Acid 1 Mg Tablet PO DAILY [facility] Piperacillin Sod/Tazobactam 50 mls @ 100 mls/hr 05/10/20 06:00 05/10/20 06:47 Sod 3.375 gm/ Sodium Chloride IV Infused Q6H [facility] Infusion Dextrose 1,000 mls @ 100 mls/hr 05/10/20 13:15 D5w IVCONT .Q10H [facility] Thiamine HCl 200 mg/ Sodium 102 mls @ 204 mls/hr 05/10/20 13:30 Chloride IV Q12H [facility] Phytonadione 10 mg/ Sodium 51 mls @ 51 mls/hr 05/10/20 13:18 Chloride IV 05/10/20 14:17 ONCE ONE Pharmacy Consult 1 each 05/09/20 23:32 Consult Rx Perform Med Rec MISCELLANE ONCE PRN Consult order Sodium Chloride 3 ml 05/10/20 08:00 0.9 % Sodium Chloride Flush 3 Ml Syringe IVFLUSH QSHIFT [facility] Labs CBC & Chem 7: 05/10/20 08:47 05/10/20 08:47 Microbiology Microbiology Results: Microbiology 05/09/20 22:30 Urine clean catch - Clean Catch Midstream Urine Culture - Preliminary Culture in progress. 05/10/20 01:24 Cerebrospinal Fluid Gram Stain - Final 05/10/20 01:24 Cerebrospinal Fluid CSF Examination - Final 05/10/20 01:24 Cerebrospinal Fluid Gross Specimen Examination - Final Assessment and Plan (1) Hypernatremia: Status: Acute (2) Sepsis: Status: Acute (3) Altered mental status: Status: Acute (4) COVID-19: Status: Acute Assessment and Plan: This is a 60 yo M who reportedly called the ambulance himself for reasons not entirely clear. He is admitted for multiple issues. 1. Acute encephalopathy, cause not clear at this time work up in progress - LP done, +proteins; may need MRI -- will await neurology input; [facility] [place] encephalitis panel sent Given LFTs elevated - ? werkniecke's from alcohol -- will start IV thiamin Urine suggestive of UTI - ? septic encephalopathy -- on antibiotics ammonia normal -- will give empiric dose of lactulose 2. Sepsis, POA / possible urine source met sepsis due to tachycardia + leukocytosis no severe features -- suspect LFTs due to liver dx zosyn for now, f/u cultures 3. Abnormal LFTs, coagulopathy baseline unclear ? related to alcohol abuse -- history very limited check hepatitis with labs tomorrow AM 4. HyperNa due to poor oral intake switch LR to D5W for 1L recheck SNa this evening 5. COVID 19 no hypoxia, asymptomatic at this time Full Code CM to help obtain information from family DVT pptx, mechanical due to coagulopathy
[2020-05-10] MEDS: Dextrose 5 % 1,000 ML 100 ML IVCONT (13:27)
[2020-05-10] MEDS: Phytonadione (Vit K1) 10 MG in 0.9 % Sodium Chloride 50 ML 51 MG IV (14:03)
[2020-05-10] MEDS: Lactulose 20 GM/30 ML SOLUTION PO ×2 (14:03→19:59)
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
[2020-05-10] MEDS: Thiamine HCL 200 MG in 0.9 % Sodium Chloride 100 ML 204 MG IV (15:13)
--- NOTE | 2020-05-10 16:04 | MHC.CM.PN ---
Pt unable to provide meaningful history or participate in [facility]. Pts sister, Ann is listed as NOK however her telephone number is out of service and no other contact information is available. Pt6s PCP is Norberto Tai, CM will contact PCP office Tuesday to determine if they have any other family contacts for this pt, office is closed on the weekend.
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
[2020-05-11] VITALS: BP 135/86; PULSE 53; RESP 20; TEMP 37; O2SAT 98
[2020-05-11] MEDS: Dextrose 5 % 1,000 ML 100 ML IVCONT (00:17)
[2020-05-11] MEDS: Piperacillin Sodium/Tazobactam 3.375 GM in 0.9 % Sodium Chloride 50 ML IV ×4 (00:29→19:18)
[2020-05-11] MEDS: Thiamine HCL 200 MG in 0.9 % Sodium Chloride 100 ML 204 MG IV ×2 (01:46→14:21)
[2020-05-11 04:00] VITALS: BP 114/76; PULSE 54; RESP 20; TEMP 37.1; O2SAT 98
[2020-05-11 07:05] LABS: INTERNATIONAL NORM RATIO 1.5 (0.9-1.1); Prothrombin Time 17.8 SEC (10.8-13.0)
[2020-05-11 07:07] LABS: PLT CLUMP 1; Red Cell Distribution Width 13.6 % (11.0-16.0)
[2020-05-11 07:09] LABS: Hematocrit 40.2 % (42-52); Hemoglobin 12.8 g/dl (14.0-18.0); Mean Corpuscular HGB Conc 31.8 g/dl (31.0-36.0); Mean Corpuscular Hemoglobin 30.5 pg (27.0-33.0); Mean Corpuscular Volume 95.7 fL (80-98); Mean Platelet Volume 11.9 fL (9.4-12.4); Platelet Count 103 X10*3/uL (160-400); White Blood Count 5.8 X10*3/uL (4.8-10.8)
[2020-05-11 07:12] LABS: Alanine Aminotransferase 55 U/L (0-40); Albumin Level 3.4 g/dL (3.5-5.0); Alkaline Phosphatase 62 U/L (39-117); Anion Gap 13 (12-20); Aspartate Amino Transferase 37 U/L (5-37); Bilirubin Direct 1.7 mg/dL (0.0-0.5); Bilirubin Total 2.4 mg/dL (0.0-1.0); Blood Urea Nitrogen 22 mg/dL (9-16); Calcium 8.2 mg/dL (8.4-10.2); Carbon Dioxide 24 mmol/L (22-29); Chloride 113 mmol/L (96-108); Creatinine Clr Calc Pharmacy 77.2; Estimated Glomerular Filt Rate > 60; Glucose Random 131 mg/dL (60-115); Potassium 3.9 mmol/l (3.3-5.1); Sodium 146 mmol/L (135-145); Total Protein 6.3 g/dL (6.5-8.0)
[2020-05-11 08:08] LABS: Procalcitonin 0.09 ng/mL
[2020-05-11] MEDS: 0.9 % Sodium Chloride Flush 3 ML SYRINGE IVFLUSH ×2 (09:31→16:18)
[2020-05-11] MEDS: Folic Acid 1 MG TABLET PO (09:31)
[2020-05-11] MEDS: Lactulose 20 GM/30 ML SOLUTION PO ×2 (09:31→21:37)
--- NOTE | 2020-05-11 09:49 | HO.PM.IMPN ---
Subjective Subjective Date of Service: 05/11/20 Interval History: seen and examined calm and cooperative, but confused knows he lives in [facility], but otherwise disoriented ROS unreliable Physical Exam Vital Signs: Vital Signs: Last Vital Signs Temp 98.8 F 05/11/20 04:00 Pulse 54 05/11/20 04:00 Resp 20 05/11/20 04:00 BP 114/76 05/11/20 04:00 Pulse Ox 98 05/11/20 04:00 Body Mass Index 26.6 Const: Other: General - no acute distress, appears comfortable; unkempt Cardiovascular - regular rate and rhythm, S1-S2 Lungs - normal respiratory effort, clear to auscultation bilaterally, no wheezing Abdomen - soft, nontender, no rebound or guarding Extremities - no edema bilaterally Neuro - awake and alert, no focal deficits, disoriented Objective Data Current Medications Generic Name Dose Route Start Last Admin Trade Name Freq PRN Reason Stop Dose Admin Folic Acid 1 mg 05/11/20 09:00 05/11/20 09:31 Folic Acid 1 Mg Tablet PO 1 mg DAILY THOM Administration Piperacillin Sod/Tazobactam 50 mls @ 100 mls/hr 05/10/20 06:00 05/11/20 06:27 Sod 3.375 gm/ Sodium Chloride IV Infused Q6H THOM Infusion Thiamine HCl 200 mg/ Sodium 102 mls @ 204 mls/hr 05/10/20 14:00 05/11/20 02:32 Chloride IV Infused Q12H THOM Infusion Lactulose 20 gm 05/10/20 13:30 05/11/20 09:31 Lactulose 20 Gm/30 Ml Solution PO 20 gm BID [facility] Administration Pharmacy Consult 1 each 05/09/20 23:32 Consult Rx Perform Med Rec MISCELLANE ONCE PRN Consult order Sodium Chloride 3 ml 05/10/20 08:00 05/11/20 09:31 0.9 % Sodium Chloride Flush 3 Ml Syringe IVFLUSH 3 ml QSHIFT [facility] Administration Labs CBC & Chem 7: 05/11/20 06:14 05/11/20 06:14 Microbiology Microbiology Results: Microbiology 05/09/20 20:26 Blood - Venous Blood Culture - Preliminary 05/09/20 20:30 Blood - Venous Blood Culture - Preliminary No growth after 24 hours. 05/09/20 22:30 Urine clean catch - Clean Catch Midstream Urine Culture - Preliminary Culture in progress. 05/10/20 01:24 Cerebrospinal Fluid Gram Stain - Final 05/10/20 01:24 Cerebrospinal Fluid CSF Examination - Final 05/10/20 01:24 Cerebrospinal Fluid Gross Specimen Examination - Final Assessment and Plan (1) Hypernatremia: Status: Acute (2) Sepsis: Status: Acute (3) Altered mental status: Status: Acute (4) COVID-19: Status: Acute Assessment and Plan: This is a 60 yo M who reportedly called the ambulance himself for reasons not entirely clear. He is admitted for multiple issues. 1. Acute encephalopathy, cause not clear at this time Neurology / ID inputs appreciated LP - meningitis / encephalitis panel negative ? due to other acute infection vs drugs/alcohol 2. Sepsis, POA / possible urine vs pulmonary source zosyn f/u cultures 3. Abnormal LFTs, coagulopathy baseline unclear down-trending continue thiamin 4. HyperNa improved encourage PO monitor daily 5. COVID 19 no hypoxia, asymptomatic at this time Full Code called sister (Ann Madison) -- phone number not working; DVT pptx, mechanical due to coagulopathy
[2020-05-11 11:42] VITALS: BP 120/69; PULSE 46; RESP 18; TEMP 36.2; O2SAT 98
[2020-05-11 15:04] VITALS: BP 109/73; PULSE 80; RESP 19; TEMP 36.1; O2SAT 97
[2020-05-11 19:17] VITALS: BP 105/59; PULSE 56; RESP 18; TEMP 37.1; O2SAT 97
[2020-05-11 23:55] VITALS: BP 127/73; PULSE 60; RESP 20; TEMP 37.2; O2SAT 96
--- NOTE | 2020-05-12 | MR_ITS ---
EXAMINATION: MR BRAIN WITHOUT CONTRAST CLINICAL INFORMATION: Encephalopathy. Evaluate for possible stroke. COMPARISON: Head CT 05/09/2020. TECHNIQUE: Multiplanar, multisequence imaging of the brain was performed without intravenous contrast. FINDINGS: There is no acute infarction, hemorrhage, mass, or extra-axial fluid collection. Moderate patchy foci of T2 hyperintensity are seen in the bilateral cerebral white matter presumably reflecting chronic microangiopathy. The ventricles are normal in size without hydrocephalus. The major arterial flow voids are preserved at the skull base. There is mild paranasal sinus mucosal thickening. The mastoids are clear. The orbital contents appear normal. MR/MR head/brain wo con IMPRESSION: No acute infarct, mass lesion, intracranial hemorrhage, or evidence of hydrocephalus.
[2020-05-12] MEDS: Piperacillin Sodium/Tazobactam 3.375 GM in 0.9 % Sodium Chloride 50 ML IV ×4 (00:27→17:58)
[2020-05-12] MEDS: 0.9 % Sodium Chloride Flush 3 ML SYRINGE IVFLUSH ×4 (00:28→20:20)
[2020-05-12] MEDS: Thiamine HCL 200 MG in 0.9 % Sodium Chloride 100 ML 204 MG IV ×2 (01:09→13:09)
[2020-05-12 04:00] VITALS: BP 100/69; PULSE 52; RESP 18; TEMP 37; O2SAT 98
[2020-05-12 05:43] LABS: PLT CLUMP 1; Red Cell Distribution Width 13.2 % (11.0-16.0)
[2020-05-12 05:45] LABS: Hematocrit 37.5 % (42-52); Mean Corpuscular Hemoglobin 29.9 pg (27.0-33.0); Mean Corpuscular Volume 93.5 fL (80-98); Mean Platelet Volume 11.5 fL (9.4-12.4); Platelet Count 111 X10*3/uL (160-400); Red Blood Count 4.01 X10*6/uL (4.60-5.80); White Blood Count 5.3 X10*3/uL (4.8-10.8)
[2020-05-12 06:07] LABS: Alanine Aminotransferase 53 U/L (0-40); Albumin Level 3.3 g/dL (3.5-5.0); Alkaline Phosphatase 58 U/L (39-117); Anion Gap 12 (12-20); Aspartate Amino Transferase 41 U/L (5-37); Bilirubin Direct 1.2 mg/dL (0.0-0.5); Bilirubin Total 1.9 mg/dL (0.0-1.0); Blood Urea Nitrogen 17 mg/dL (9-16); Calcium 7.9 mg/dL (8.4-10.2); Carbon Dioxide 23 mmol/L (22-29); Chloride 109 mmol/L (96-108); Creatinine Clr Calc Pharmacy 90.8; Estimated Glomerular Filt Rate > 60; Glucose Random 93 mg/dL (60-115); Potassium 3.4 mmol/l (3.3-5.1); Sodium 141 mmol/L (135-145)
[2020-05-12 07:31] VITALS: BP 109/74; PULSE 46; RESP 18; TEMP 36.2; O2SAT 97
[2020-05-12 07:48] LABS: HIV AB/AG Nonreactive (Nonreactive); HIV Num 1 0.17 S/CO (0.00-0.99)
[2020-05-12 07:53] LABS: ~Hepatitis C Antibody Nonreactive (Nonreactive)
[2020-05-12] MEDS: Folic Acid 1 MG TABLET PO (07:55)
[2020-05-12] MEDS: Lactulose 20 GM/30 ML SOLUTION PO ×2 (07:55→20:19)
--- NOTE | 2020-05-12 09:21 | MHC.CM.PN ---
Called phone# listed as contact Ann Young, the patients sister. The # is out of services. A VM was left for the office of DR Denise Alexander. The message was need for contact info and [facility]. No return call has been received at this time. The Patient has AMS. He can not provided info. CM will follow.
[2020-05-12 10:08] LABS: Vancomycin Trough < 3.0 mcg/mL (10.0-20.0)
--- NOTE | 2020-05-12 11:29 | P.PNIM_ITS ---
Subjective Subjective Date of Service: 05/12/20 Interval History: seen and examined mentation improved knows hes in the hospital because he wasnt feeling well reports he has a sister, doesnt know her phone number denies alcohol use or illicit substance use ROS unreliable Physical Exam Vital Signs: Vital Signs: Last Vital Signs Temp 97.2 F 05/12/20 07:31 Pulse 46 L 05/12/20 07:31 Resp 18 05/12/20 07:31 BP 109/74 05/12/20 07:31 Pulse Ox 97 05/12/20 07:31 Body Mass Index 26.6 Const: Other: General - no acute distress, appears comfortable; unkempt Cardiovascular - regular rate and rhythm, S1-S2 Lungs - normal respiratory effort, clear to auscultation bilaterally, no wheezing Abdomen - soft, nontender, no rebound or guarding Extremities - no edema bilaterally Neuro - awake and alert, no focal deficits, oriented to self and place Objective Data Current Medications Generic Name Dose Route Start Last Admin Trade Name Freq PRN Reason Stop Dose Admin Folic Acid 1 mg 05/11/20 09:00 05/12/20 07:55 Folic Acid 1 Mg Tablet PO 1 mg DAILY THOM Administration Piperacillin Sod/Tazobactam 50 mls @ 100 mls/hr 05/10/20 06:00 05/12/20 06:35 Sod 3.375 gm/ Sodium Chloride IV Infused Q6H THOM Infusion Thiamine HCl 200 mg/ Sodium 102 mls @ 204 mls/hr 05/10/20 14:00 05/12/20 01:51 Chloride IV Infused Q12H THOM Infusion Lactulose 20 gm 05/10/20 13:30 05/12/20 07:55 Lactulose 20 Gm/30 Ml Solution PO 20 gm BID [facility] Administration Pharmacy Consult 1 each 05/09/20 23:32 Consult Rx Perform Med Rec MISCELLANE ONCE PRN Consult order Sodium Chloride 3 ml 05/10/20 08:00 05/12/20 07:55 0.9 % Sodium Chloride Flush 3 Ml Syringe IVFLUSH 3 ml QSHIFT THOM Administration Labs CBC & Chem 7: 05/12/20 04:58 05/12/20 04:58 Microbiology Microbiology Results: Microbiology 05/09/20 20:26 Blood - Venous Blood Culture - Preliminary Coag negative Staphylococcus 05/10/20 01:24 Cerebrospinal Fluid Gram Stain - Final 05/10/20 01:24 Cerebrospinal Fluid CSF Examination - Final 05/10/20 01:24 Cerebrospinal Fluid Gross Specimen Examination - Final 05/10/20 01:24 Cerebrospinal Fluid CSF Culture - Preliminary No growth after 2 days 05/10/20 21:28 Blood - Venous Blood Culture - Preliminary No growth after 24 hours. 05/10/20 21:27 Blood - Venous Blood Culture - Preliminary No growth after 24 hours. 05/09/20 20:30 Blood - Venous Blood Culture - Preliminary No growth after 48 hours. 05/09/20 22:30 Urine clean catch - Clean Catch Midstream Urine Culture - Final Assessment and Plan (1) Hypernatremia: Status: Acute (2) Sepsis: Status: Acute (3) Altered mental status: Status: Acute (4) COVID-19: Status: Acute Assessment and Plan: This is a 60 yo M who reportedly called the ambulance himself for reasons not entirely clear. He is admitted for multiple issues. 1. Acute encephalopathy, cause not clear at this time Neurology / ID inputs appreciated LP - meningitis / encephalitis panel negative ? due to other acute infection vs drugs/alcohol improving MRI/EEG today 2. Sepsis, POA / possible urine vs pulmonary source zosyn, f/u cultures -- urine negative blood cx -- initial with coag neg staph, repeat negative suspect due to pneumonia -- likely aspiration 3. Abnormal LFTs, coagulopathy baseline unclear down-trending continue thiamin 4. HyperNa resolved 5. COVID 19 no hypoxia, asymptomatic at this time Full Code called sister (Ann Madison) -- phone number not working; DVT pptx, mechanical due to coagulopathy
[2020-05-12 12:00] VITALS: BP 101/71; PULSE 57; RESP 18; TEMP 37; O2SAT 97
--- NOTE | 2020-05-12 12:08 | MHC.CM.PN ---
Male 60 DX Covid + In an attempt to reach the patients contact lens flashing puncher, Ann Madison several phone #s obtained from EMR. All of the numbers are out of services. Dr Alexander and Dr Tim have the same out of contact info that we have. Notified MD that We may not be able to speak with a relative. CM will follow.
[2020-05-12 15:30] VITALS: BP 113/68; PULSE 73; RESP 18; TEMP 37.1; O2SAT 94
--- NOTE | 2020-05-12 19:03 | PC.NURSE ---
Pt's sister, Ann, called looking for update. Pt's sister stated pt has some confusion at baseline, stated he is like a kid , unable to understand how life works . Updated phone number for sister is as followed [phone]. Sister looking for updates as needed.
[2020-05-12 20:21] VITALS: BP 126/77; PULSE 67; RESP 13; TEMP 37.2; O2SAT 94
[2020-05-12 23:42] VITALS: BP 118/64; PULSE 67; RESP 20; TEMP 37.7; O2SAT 97
[2020-05-13] MEDS: Piperacillin Sodium/Tazobactam 3.375 GM in 0.9 % Sodium Chloride 50 ML IV ×4 (01:57→17:58)
[2020-05-13] MEDS: Thiamine HCL 200 MG in 0.9 % Sodium Chloride 100 ML IV ×2 (01:57→13:29)
[2020-05-13 04:00] VITALS: BP 118/67; PULSE 56; RESP 18; TEMP 37; O2SAT 94
[2020-05-13 07:25] LABS: Hematocrit 38.6 % (42-52); Hemoglobin 12.5 g/dl (14.0-18.0); Mean Corpuscular HGB Conc 32.4 g/dl (31.0-36.0); Mean Corpuscular Hemoglobin 30.4 pg (27.0-33.0); Mean Corpuscular Volume 93.9 fL (80-98); Mean Platelet Volume 11.3 fL (9.4-12.4); Platelet Count 106 X10*3/uL (160-400); Red Blood Count 4.11 X10*6/uL (4.60-5.80); Red Cell Distribution Width 12.9 % (11.0-16.0); White Blood Count 5.8 X10*3/uL (4.8-10.8)
[2020-05-13 07:28] LABS: Anion Gap 11 (12-20); Blood Urea Nitrogen 12 mg/dL (9-16); Calcium 7.8 mg/dL (8.4-10.2); Carbon Dioxide 26 mmol/L (22-29); Chloride 107 mmol/L (96-108); Creatinine Clr Calc Pharmacy 82.5; Estimated Glomerular Filt Rate > 60; Glucose Random 95 mg/dL (60-115); Potassium 3.7 mmol/l (3.3-5.1); Sodium 140 mmol/L (135-145)
[2020-05-13 07:53] VITALS: BP 117/63; PULSE 53; RESP 18; TEMP 36.8; O2SAT 97
[2020-05-13] MEDS: Folic Acid 1 MG TABLET PO (08:07)
[2020-05-13] MEDS: 0.9 % Sodium Chloride Flush 3 ML SYRINGE IVFLUSH ×2 (08:07→15:20)
[2020-05-13] MEDS: Lactulose 20 GM/30 ML SOLUTION PO ×2 (08:07→20:14)
[2020-05-13 11:16] VITALS: BP 100/57; PULSE 52; RESP 18; TEMP 36.5; O2SAT 98
--- NOTE | 2020-05-13 15:20 | HO.PM.IMPN ---
Subjective Subjective Date of Service: 05/13/20 Interval History: the patient was seen and evaluated this morning Laying in bed, feels comfortable Denies any fever, chills or shortness of breath but cannot trust much his judgment as he seems confused No reported other overnight events. Systemic review: No fever, chills or weakness No chest pain, palpitation No shortness of breath or coughing No abdominal pain, nausea or vomiting No urinary symptoms No any rash or wounds Physical Exam Vital Signs: Vital Signs: Last Vital Signs Temp 97.7 F 05/13/20 11:16 Pulse 52 05/13/20 11:16 Resp 18 05/13/20 11:16 BP 100/57 L 05/13/20 11:16 Pulse Ox 98 05/13/20 11:16 Body Mass Index 26.6 Constitutional : Alert, oriented to self, not in distress Neck : Normal inspection, Supple Cardiovascular : RRR, S1 S2, no lower extremity edema Respiratory : Good bilateral chest wall movement, not in respiratory distress Gastrointestinal: soft, lax, Non tender Skin : Warm/Dry, No rash Neurological : Alert & oriented to self, No focal deficit Objective Data Current Medications Generic Name Dose Route Start Last Admin Trade Name Freq PRN Reason Stop Dose Admin Folic Acid 1 mg 05/11/20 09:00 05/13/20 08:07 Folic Acid 1 Mg Tablet PO 1 mg DAILY THOM Administration Piperacillin Sod/Tazobactam 50 mls @ 100 mls/hr 05/10/20 06:00 05/13/20 13:18 Sod 3.375 gm/ Sodium Chloride IV Infused Q6H THOM Infusion Thiamine HCl 200 mg/ Sodium 102 mls @ 204 mls/hr 05/10/20 14:00 05/13/20 14:11 Chloride IV Infused Q12H THOM Infusion Lactulose 20 gm 05/10/20 13:30 05/13/20 08:07 Lactulose 20 Gm/30 Ml Solution PO 20 gm BID THOM Administration Pharmacy Consult 1 each 05/09/20 23:32 Consult Rx Perform Med Rec MISCELLANE ONCE PRN Consult order Sodium Chloride 3 ml 05/10/20 08:00 05/13/20 08:07 0.9 % Sodium Chloride Flush 3 Ml Syringe IVFLUSH 3 ml QSHIFT THOM Administration Labs CBC & Chem 7: 05/13/20 06:02 05/13/20 06:02 Microbiology Microbiology Results: Microbiology 05/10/20 01:24 Cerebrospinal Fluid Gram Stain - Final 05/10/20 01:24 Cerebrospinal Fluid CSF Examination - Final 05/10/20 01:24 Cerebrospinal Fluid Gross Specimen Examination - Final 05/10/20 01:24 Cerebrospinal Fluid CSF Culture - Final No growth after 3 days. 05/10/20 21:28 Blood - Venous Blood Culture - Preliminary No growth after 48 hours. 05/10/20 21:27 Blood - Venous Blood Culture - Preliminary No growth after 48 hours. 05/09/20 20:26 Blood - Venous Blood Culture - Preliminary Coag negative Staphylococcus 05/09/20 20:30 Blood - Venous Blood Culture - Preliminary No growth after 48 hours. 05/09/20 22:30 Urine clean catch - Clean Catch Midstream Urine Culture - Final Assessment and Plan (1) Hypernatremia: Status: Acute (2) Sepsis: Status: Acute (3) Altered mental status: Status: Acute (4) COVID-19: Status: Acute Assessment and Plan: This is a 60 yo M who reportedly called the ambulance himself for reasons not entirely clear. He is admitted for multiple issues. 1. Acute encephalopathy Unclear underlying goes, seems to be secondary to electrolyte imbalance, COVID infection Neurology / ID inputs appreciated LP -negative meningitis / encephalitis panel Unclear history of alcohol abuse improving MRI not showing any acute findings Pending EEG today 2. Sepsis, Likely secondary to pulmonary source Continue zosyn blood cx -- initial with coag neg staph, repeat negative suspect due to pneumonia -- likely aspiration 3. Abnormal LFTs, coagulopathy baseline unclear down-trending continue thiamin 4. HyperNa resolved 5. COVID 19 no hypoxia, asymptomatic at this time 6. Coagulopathy INR above 2 at time of presentation secondary to underlying liver problem INR going down smooth knee Continue to monitor Full Code called sister (Ann Madison) -- phone number not working; DVT pptx, mechanical due to coagulopathy
[2020-05-13 15:36] VITALS: BP 107/60; PULSE 50; RESP 20; TEMP 36.8; O2SAT 99
[2020-05-13 19:16] VITALS: BP 102/59; PULSE 53; RESP 18; TEMP 36.8; O2SAT 98
[2020-05-14] VITALS: BP 100/64; PULSE 57; RESP 20; TEMP 37.3; O2SAT 97
[2020-05-14] MEDS: Piperacillin Sodium/Tazobactam 3.375 GM in 0.9 % Sodium Chloride 50 ML IV ×2 (00:07→05:46)
[2020-05-14] MEDS: 0.9 % Sodium Chloride Flush 3 ML SYRINGE IVFLUSH ×2 (00:07→07:42)
[2020-05-14] MEDS: Thiamine HCL 200 MG in 0.9 % Sodium Chloride 100 ML IV (02:12)
--- NOTE | 2020-05-14 03:25 | PC.NURSE ---
Note sent to hospitalist on duty via tiger connect to alert her to patients low heartrate. Heartrate has been on the low side, but presently past 4 hours has been staying in the mid to low 40's.Patient offers no complaints, BP 100/64, o2 sat level 97% room air with no s/sx resp distress, no cp, no color changes, and close supervision with ambulation to BR. Note was sent to MD to view graph of heart rate and question if wanted to treat, and MD did reply with a thank you. will watch for new orders, monitor patient closely, and noted is being watched on the monitoring engineer by I[facility] RN.
[2020-05-14 04:00] VITALS: BP 111/62; PULSE 52; RESP 18; TEMP 37.1; O2SAT 98
[2020-05-14 07:14] LABS: INTERNATIONAL NORM RATIO 1.2 (0.9-1.1); Prothrombin Time 14.6 SEC (10.8-13.0)
[2020-05-14 07:20] LABS: Hematocrit 35.2 % (42-52); Hemoglobin 11.5 g/dl (14.0-18.0); Mean Corpuscular HGB Conc 32.7 g/dl (31.0-36.0); Mean Corpuscular Hemoglobin 30.4 pg (27.0-33.0); Mean Corpuscular Volume 93.1 fL (80-98); Mean Platelet Volume 11.3 fL (9.4-12.4); Platelet Count 108 X10*3/uL (160-400); Red Blood Count 3.78 X10*6/uL (4.60-5.80); Red Cell Distribution Width 13.1 % (11.0-16.0)
[2020-05-14 07:39] LABS: Anion Gap 11 (12-20); Blood Urea Nitrogen 11 mg/dL (9-16); Calcium 7.7 mg/dL (8.4-10.2); Carbon Dioxide 25 mmol/L (22-29); Chloride 108 mmol/L (96-108); Creatinine Clr Calc Pharmacy 90.8; Estimated Glomerular Filt Rate > 60; Glucose Random 91 mg/dL (60-115); Lactate Dehydrogenase 262 U/L (118-273); Potassium 3.4 mmol/l (3.3-5.1); Sodium 141 mmol/L (135-145)
[2020-05-14] MEDS: Folic Acid 1 MG TABLET PO (07:41)
[2020-05-14] MEDS: Lactulose 20 GM/30 ML SOLUTION PO (07:42)
[2020-05-14 08:00] VITALS: BP 92/62; PULSE 54; RESP 20; TEMP 36.1; O2SAT 99
[2020-05-14 08:33] LABS: Alanine Aminotransferase 76 U/L (0-40); Albumin Level 3.1 g/dL (3.5-5.0); Alkaline Phosphatase 54 U/L (39-117); Aspartate Amino Transferase 51 U/L (5-37); Bilirubin Direct 0.8 mg/dL (0.0-0.5); Bilirubin Total 1.4 mg/dL (0.0-1.0)
--- NOTE | 2020-05-14 10:35 | PM.DS ---
DS: Providers Provider Date of admission: 05/10/20 03:56 Primary care physician: Denise Tai MD Consults: 05/10/20 03:56 Consult to Infectious Diseases Routine Consulting Provider: Ilsa Deutsch Reason for consultation: AMS / PNA / UTI Has provider been notified: No Consult to Neurology Routine Consulting Provider: [facility] Reason for consultation: AMS Has provider been notified: No DS: Diagnosis Discharge Diagnosis (1) Hypernatremia: Status: Acute (2) Sepsis: Status: Acute (3) Altered mental status: Status: Acute (4) COVID-19: Status: Acute (5) Elevated LFTs: Status: Acute DS: Medications Discharge Medications Home Medications: Previous Rx's Medication Instructions Recorded amoxicillin-pot clavulanate 1 tab PO Q12H #8 tab 05/14/20 [Augmentin] folic acid 1 mg PO DAILY #30 tab 05/14/20 thiamine HCl (vitamin B1) 100 mg PO DAILY #30 tab 05/14/20 DS: Summary Hospital Course Hospital Course: Admission note HPI 60 y/o male with unknown PMHX who presented to the ED with AMS. Patient is unable to provide with any significant medical hx but per EMS patient called 911 as he was feeling cold but later on started c/o multiple symptoms including abdominal pain and seeing things that were not there . On presentation to the ED patient was noted to be tachycardic 112 and tachypneic 22, WBC of 14.7 on Blood work with platelet of 146, INR of 2.2, Na of 149, AG of 23 with cloride of 112, Elevated LFT's (direct bili of 4.1), Troponin plateau of 113--?97, UA positive for UTI, covid 19 infection positive, CT head negative for any acute intracranial pathology, CT abdomen unremarkable, CXR showing RLL PNA. LP was performed by ED attending and decision for admission was given. Patient seen and examined at the bedside, laying down in bed in no acute distress. No hx is able to be obtained given patient was sedated for LP by ED attending but ED reporting patient is very confused since presentation and is unable to provide with any meaninful hx. Hospital course The patient was admitted to the hospital for evaluation of acute encephalopathy. The underlying goes was and clears during the hospital stay as LP was done and came back negative for meningitis encephalitis, MRI was negative for any acute findings. He was evaluated by Neurology infectious disease specialist and the reason could be a result of COVID infection and electrolyte imbalance as he was found to be hypernatremic at time of presentation. He was noted to be septic at the same time with lung as the likely source of the infection. He was treated with IV Zosyn with good response as his mental status cleared up back to baseline. He did not require oxygen supplement during the hospital stay. He was noted to have elevated liver enzymes. CT scan of the abdomen and pelvis was negative for any liver abnormality or obstruction. Liver enzymes trended down during the hospital stay. It seems to be likely related to COVID infection. Patient insisted that he does not drink alcohol and I was unable to contact his family even though I tried multiple times to call the sister to confirm that. He was started on thiamine and folic acid and will be discharged on 1 month supplement of that. He tested positive for COVID-19 infection. Treated symptomatically. Did not require IV steroids or oxygen supplement. To be discharged to his sister's home as planned by social economist. He is supposed to follow up with PCP within the next week or 2. To repeat liver enzymes before that in case if he needs further evaluation. Time Spent with Patient Time attestation: Total time spent providing and/or coordinating discharge services: Physical Exam Vital Signs: Vital Signs: Last Vital Signs Temp 96.9 F 05/14/20 08:00 Pulse 54 05/14/20 08:00 Resp 20 05/14/20 08:00 BP 92/62 05/14/20 08:00 Pulse Ox 99 05/14/20 08:00 Body Mass Index 26.6 Constitutional : Alert, oriented, not in distress Neck : Normal inspection, Supple Cardiovascular : RRR, S1 S2, no lower extremity edema Respiratory : Good bilateral air entry, no crackles, wheezes or rhonchi Gastrointestinal: soft, lax, Normal bowel sounds, Non tender Skin : Warm/Dry, No rash Neurological : Alert & oriented x3, No focal deficit DS: Data Data Completed and Pending Labs on day of discharge: 05/09/20 19:10 ECG 12 lead EKG Stat EKG Documentation DIRECTED CT abdomen pelvis w con Stat 0.9 % Sodium Chloride [Ns] 1,000 ml IVCONT 999 mls/hr 05/09/20 19:11 CT head/brain wo con Stat 05/09/20 20:26 Basic Metabolic Panel Stat Complete Blood Count Auto Diff Stat Ethanol Stat Lactic Acid Stat Lipase Stat Liver Panel Stat Prothrombin Time INR Stat Troponin-I High Sensitivity Stat 05/09/20 21:22 0.9 % Sodium Chloride [Ns] 1,000 ml IVCONT 999 mls/hr 05/09/20 21:31 ECG 12 lead EKG Stat EKG Documentation DIRECTED 05/09/20 21:35 iohexoL 350 MG/ML [Omnipaque 350 MG/ML] 100 ml IV ONCE ONE 05/09/20 21:58 levoFLOXacin/D5W [Levaquin] 500 mg in 100 ml IV ONCE 05/09/20 22:18 Drug Screen Urine Stat 05/09/20 22:30 Urine Culture Routine 05/09/20 23:55 Ammonia Stat COVID-19 ID NOW ([place]) Stat Troponin-I High Sensitivity Stat 05/10/20 00:21 XR chest 1V Stat 05/10/20 00:32 Ketamine HCl/NS 150 mg IVPUSH ONCE ONE 05/10/20 01:05 Midazolam HCl/PF [Versed] 2 mg .ROUTE .STK-MED ONE Midazolam HCl/PF [Versed] 2 mg IVPUSH ONCE ONE 05/10/20 01:24 CSF Culture + Gram stain Stat 05/10/20 01:25 CSF Cell Count w Diff Stat CSF Glucose Stat CSF Total Protein Stat 05/10/20 01:40 Meningitis Encephalitis CSF Stat 05/10/20 03:53 Transfer Order Routine 05/10/20 04:00 Heparin Sodium,Porcine 5,000 unit SUBCUT Q8H 05/10/20 04:15 Lactated Ringers [Lr] 1,000 ml IVCONT 100 mls/hr 05/10/20 05:43 Piperacillin Sodium/Tazobactam [Zosyn] 3.375 gm IV .STK-MED ONE 05/10/20 08:47 Basic Metabolic Panel Routine Complete Blood Count no Diff Routine Liver Panel Routine Procalcitonin Routine Prothrombin Time INR Routine 05/10/20 Breakfast NPO Diet 05/10/20 13:15 Dextrose 5 % [D5w] 1,000 ml IVCONT 100 mls/hr Piperacillin Sodium/Tazobactam [Zosyn] 3.375 gm IV .STK-MED ONE 05/10/20 13:18 Phytonadione (Vit K1) [Vitamin K] 10 mg 0.9 % Sodium Chloride [Ns] 50 ml IV ONCE 05/10/20 13:55 Thiamine HCL 200 mg .ROUTE .STK-MED ONE 05/10/20 18:17 Piperacillin Sodium/Tazobactam [Zosyn] 3.375 gm IV .STK-MED ONE 05/10/20 21:01 Consult Rx Vancomycin Dosing 1 each MISCELLANE DAILY PRN 05/10/20 21:33 HIV Ab/Ag Urgent Hepatitis C Antibody Routine 05/10/20 22:00 vancomycin HCL 1,000 mg 0.9 % Sodium Chloride [Ns] 250 ml IV Q12H 05/11/20 00:24 Piperacillin Sodium/Tazobactam [Zosyn] 3.375 gm IV .STK-MED ONE 05/11/20 05:47 Piperacillin Sodium/Tazobactam [Zosyn] 3.375 gm IV .STK-MED ONE 05/11/20 06:14 Basic Metabolic Panel DAILY@0600 Complete Blood Count no Diff DAILY@0600 Liver Panel DAILY@0600 Procalcitonin Routine Prothrombin Time INR DAILY@0600 05/11/20 12:56 Piperacillin Sodium/Tazobactam [Zosyn] 3.375 gm IV .STK-MED ONE 05/11/20 19:16 Piperacillin Sodium/Tazobactam [Zosyn] 3.375 gm IV .STK-MED ONE 05/12/20 MR head/brain wo con Routine 05/12/20 00:21 Piperacillin Sodium/Tazobactam [Zosyn] 3.375 gm IV .STK-MED ONE 05/12/20 04:58 Basic Metabolic Panel DAILY@0600 Complete Blood Count no Diff DAILY@0600 Liver Panel DAILY@0600 05/12/20 05:49 Piperacillin Sodium/Tazobactam [Zosyn] 3.375 gm IV .STK-MED ONE 05/12/20 09:16 Vancomycin Trough Routine 05/12/20 12:17 Piperacillin Sodium/Tazobactam [Zosyn] 3.375 gm IV .STK-MED ONE 05/12/20 17:54 Piperacillin Sodium/Tazobactam [Zosyn] 3.375 gm IV .STK-MED ONE 05/13/20 01:42 Piperacillin Sodium/Tazobactam [Zosyn] 3.375 gm IV .STK-MED ONE Thiamine HCL 200 mg .ROUTE .STK-MED ONE 05/13/20 06:02 Basic Metabolic Panel DAILY@0600 Complete Blood Count no Diff DAILY@0600 05/13/20 06:07 Piperacillin Sodium/Tazobactam [Zosyn] 3.375 gm IV .STK-MED ONE 05/13/20 12:06 Piperacillin Sodium/Tazobactam [Zosyn] 3.375 gm IV .STK-MED ONE 05/13/20 17:51 Piperacillin Sodium/Tazobactam [Zosyn] 3.375 gm IV .STK-MED ONE 05/13/20 23:46 Piperacillin Sodium/Tazobactam [Zosyn] 3.375 gm IV .STK-MED ONE 05/14/20 05:39 Piperacillin Sodium/Tazobactam [Zosyn] 3.375 gm IV .STK-MED ONE 05/14/20 06:28 Basic Metabolic Panel DAILY@0600 Complete Blood Count no Diff DAILY@0600 Lactate Dehydrogenase Routine Liver Panel Routine Prothrombin Time INR DAILY@0600 05/14/20 08:13 Add Laboratory Test Urgent Laboratory Last Values WBC 5.0 X10*3/uL (4.8-10.8) 05/14/20 06:28 RBC 3.78 X10*6/uL (4.60-5.80) L 05/14/20 06:28 Hgb 11.5 g/dl (14.0-18.0) L 05/14/20 06:28 Hct 35.2 % (42-52) L 05/14/20 06:28 MCV 93.1 fL (80-98) 05/14/20 06:28 MCH 30.4 pg (27.0-33.0) 05/14/20 06:28 MCHC 32.7 g/dl (31.0-36.0) 05/14/20 06:28 RDW 13.1 % (11.0-16.0) 05/14/20 06:28 Plt Count 108 X10*3/uL (160-400) L 05/14/20 06:28 MPV 11.3 fL (9.4-12.4) 05/14/20 06:28 Immature Gran % (Auto) 0.5 % (0.0-0.4) H 05/09/20 20: Neut % (Auto) 89.1 % (45-73) H 05/09/20 20: Lymph % (Auto) 4.6 % (20-40) L 05/09/20 20: [place] % (Auto) 5.6 % (2-11) 05/09/20 20: Eos % (Auto) 0.1 % (0-4) 05/09/20 20: Baso % (Auto) 0.1 % (0-2) 05/09/20 20: Lymph # (Auto) 0.7 X10*3/uL (1.2-4.9) L 05/09/20 20: [place] # (Auto) 0.8 X10*3/uL (0.1-1.2) 05/09/20 20: Eos # (Auto) 0.0 X10*3/uL (0.0-0.4) 05/09/20 20: Baso # (Auto) 0.0 X10*3/uL (0.0-0.2) 05/09/20 20: Abs Immat Gran (auto) 0.08 X10*3/uL (0.00-0.03) H 05/09/20 20: Absolute Neuts (auto) 13.1 X10*3/uL (2.0-8.3) H 05/09/20 20: Absolute Nucleated RBC 0.000 X10*3/uL (0.0-0.012) 05/14/20 06:28 Nucleated RBC % (auto) 0.0 /100WBC (0.0-0.2) 05/14/20 06:28 PT 14.6 SEC (10.8-13.0) H 05/14/20 06:28 INR 1.2 (0.9-1.1) H 05/14/20 06:28 Sodium 141 mmol/L (135-145) 05/14/20 06:28 Potassium 3.4 mmol/l (3.3-5.1) 05/14/20 06:28 Chloride 108 mmol/L (96-108) 05/14/20 06:28 Carbon Dioxide 25 mmol/L (22-29) 05/14/20 06:28 Anion Gap 11 (12-20) L 05/14/20 06:28 BUN 11 mg/dL (9-16) 05/14/20 06:28 Creatinine 0.80 mg/dL (0.5-1.4) 05/14/20 06:28 Estim Creat Clear Calc 90.8 05/14/20 06:28 Estimated GFR > 60 05/14/20 06:28 Random Glucose 91 mg/dL (60-115) 05/14/20 06:28 Lactic Acid 1.1 mmol/L (0.5-2.0) 05/09/20 20:26 Calcium 7.7 mg/dL (8.4-10.2) L 05/14/20 06:28 Total Bilirubin 1.4 mg/dL (0.0-1.0) H 05/14/20 06:28 Direct Bilirubin 0.8 mg/dL (0.0-0.5) H 05/14/20 06:28 AST 51 U/L (5-37) H 05/14/20 06:28 ALT 76 U/L (0-40) H 05/14/20 06:28 Alkaline Phosphatase 54 U/L (39-117) 05/14/20 06:28 Ammonia 34 umol/L (13-55) 05/09/20 23:55 Lactate Dehydrogenase 262 U/L (118-273) 05/14/20 06:28 Troponin I High Sens 97.2 ng/L (<3.5-35.0) H 05/09/20 23:55 Total Protein 6.0 g/dL (6.5-8.0) L 05/14/20 06:28 Albumin 3.1 g/dL (3.5-5.0) L 05/14/20 06:28 Lipase 196 U/L (8-78) H 05/09/20 20:26 Procalcitonin 0.09 ng/mL 05/11/20 06:14 Urine Color [place] 05/09/20 22:18 Urine Appearance CLEAR 05/09/20 22:18 Urine pH 5.0 (5.0-8.0) 05/09/20 22:18 Ur Specific [place] 1.025 (1.005-1.025) 05/09/20 22:18 Urine Protein 1+ MG/DL (NEG-TRACE) H 05/09/20 22:18 Urine Glucose (UA) 100 MG/DL (NEG) H 05/09/20 22:18 Urine Ketones 15 MG/DL (NEG) 05/09/20 22:18 Urine Blood 1+ (NEG) H 05/09/20 22:18 Urine Nitrite POS (NEG) H 05/09/20 22:18 Ur Leukocyte Esterase NEG (NEG) 05/09/20 22:18 Urine RBC 1-4 /HPF (0) 05/09/20 22:18 Urine WBC 1-4 /HPF (0-4) 05/09/20 22:18 Ur Squamous Epith Cells TRACE /LPF 05/09/20 22:18 Urine Bacteria 1+ /LPF 05/09/20 22:18 Hyaline Casts 0-2 /LPF 05/09/20 22:18 Granular Casts 1-4 /LPF 05/09/20 22:18 CSF Tube Number 2 05/10/20 01:25 CSF Tube Number 4 05/10/20 01:25 CSF Volume 1.0 ML 05/10/20 01:25 CSF Appearance CLEAR 05/10/20 01:25 CSF Color COLORLESS 05/10/20 01:25 CSF WBC 1 MM*3 05/10/20 01:25 CSF RBC 71 MM*3 05/10/20 01:25 CSF Neutrophils 3 % 05/10/20 01:25 CSF Lymphocytes 50 % 05/10/20 01:25 CSF Monocytes % 47 % 05/10/20 01:25 CSF Appearance (b) Clear, Colorless 05/10/20 01:25 CSF Glucose 79 mg/dL 05/10/20 01:25 CSF Total Protein 61.9 mg/dL (15-45) H 05/10/20 01:25 CSF Mening/Enceph PCR SEE NOTE 05/10/20 01:40 Vancomycin Trough < 3.0 mcg/mL (10.0-20.0) L 05/12/20 09:16 Urine Opiates Screen Not Detected (Not Detect) 05/09/20 22:18 Ur Barbiturates Screen Not Detected (Not Detect) 05/09/20 22:18 Ur Phencyclidine Scrn Not Detected (Not Detect) 05/09/20 22:18 Ur Amphetamines Screen Not Detected (Not Detect) 05/09/20 22:18 U Benzodiazepines Scrn Not Detected (Not Detect) 05/09/20 22:18 Urine Cocaine Screen Not Detected (Not Detect) 05/09/20 22:18 U Marijuana (THC) Screen Not Detected (Not Detect) 05/09/20 22:18 Ethyl Alcohol < 10 mg/dL 05/09/20 20:26 COVID-19 (NIC) Positive (Negative) A 05/09/20 23:55 COVID-19 Clin Com See Note 05/09/20 23:55 Hepatitis C Ab (EIA) Nonreactive (Nonreactive) 05/10/20 21:33 HIV 1&2 Ab/P24 Ag 4thGn Nonreactive (Nonreactive) 05/10/20 21:33 Preliminary micro results at discharge 05/10/20 21:28 Blood Culture - Preliminary Blood - Venous No growth after 48 hours. 05/10/20 21:27 Blood Culture - Preliminary Blood - Venous No growth after 48 hours. 05/09/20 20:26 Blood Culture - Preliminary Blood - Venous Coag negative Staphylococcus 05/09/20 20:30 Blood Culture - Preliminary Blood - Venous No growth after 48 hours. Discharge Plan Discharge Patient Disposition: Home, Self-Care Referrals: Denise Tai MD [Primary Care Provider] - Discharge Medications: New folic acid 1 mg Tablet 1 mg PO DAILY Qty: 30 RF: 0 amoxicillin-pot clavulanate [Augmentin] 875-125 mg tablet 1 tab PO Q12H Qty: 8 RF: 0 thiamine HCl (vitamin B1) 100 mg tablet 100 mg PO DAILY Qty: 30 RF: 0 Discharge Orders: Discharge Order (Routine); Ordered 05/14/20 Ordered By: Karma Gore Diet: advance to usual diet Activity on Discharge: As tolerated Other Ambulatory Orders: Basic Metabolic Panel (Routine) Timeframe: 1 Week Facility: [facility] - Location: Laboratory Ordered By: Karma Gore Liver Panel (Routine) Timeframe: 1 Week Facility: [facility] - Location: Laboratory Ordered By: Karma Gore Visit Report Forms: Patient Portal Discharge page Care Plan Goals: Read below Health Concerns: Read below Plan of Treatment: You have presented to the hospital with altered mentation and being sick. You were found to have pneumonia that was treated with IV antibiotics with fair response and evaluated by infectious disease specialist. You still positive for COVID-19 infection. Your treated symptomatically with good response. You were evaluated for altered mentation by neurologist. Images for your brain including MRI was within normal. Your mental status started to improved during the hospital stay. Your liver enzymes were noted to be elevated. You were started on thiamine and folic acid. To continue with that for the next month To repeat blood test in 1 week to follow-up with PCP for further workup of liver abnormalities
--- NOTE | 2020-05-14 11:02 | MHC.CM.PN ---
IMM 05/14/2020 MALE DX AMS Spoke with Ann, Pts Sister. She stated that he lives on 1st floor, she lives on 2nd floor. She is his primary caregiver. She confirmed PCP Dr Alexander. He does not have services in place. He is discharged to home today with family assist. His sister, Ann will provide transportation. RN provided DC instructions verbally to Ann via phone.
== END 2020-05-14 12:02 | disposition home or self-care (01) | DRG 720 ==
LOC: HO.ED 23:37 → HO.IMC 05-10 04:17
PROVIDERS: Family Medicine; Internal Medicine; Admitting Provider Internal Medicine; Emergency Provider Emergency Medicine; PCP Internal Medicine; Visit Provider Student in an Organized Health Care Education/Training Program
DX: A41.9 Sepsis, unspecified organism (principal); U07.1 COVID-19; G93.40 Encephalopathy, unspecified; E87.0 Hyperosmolality and hypernatremia; D68.9 Coagulation defect, unspecified; J18.9 Pneumonia, unspecified organism; E86.0 Dehydration; N39.0 Urinary tract infection, site not specified; E78.5 Hyperlipidemia, unspecified; F17.210 Nicotine dependence, cigarettes, uncomplicated; Z79.899 Other long term (current) drug therapy
CPT/HCPCS: 36415; 70450; 70551; 71045; 74177; 80048; 80076; 80202; 80307; 80320; 81001; 82140; 82945; 83605; 83615; 83690; 84145; 84157; 84484; 85025; 85027; 85610; 86803; 87015; 87040; 87070; 87086; 87147; 87205; 87389; 87635; 89051; 93005; 96361; 96365; 96375; 99285; 99291; J1956; J2250; J2543; J3411; J3430; Q9967

== ENCOUNTER 2021-10-22 00:34 | Emergency (ER) | payer MEDICAID, SELFPAY ==
--- NOTE | ~2021-10-22 | CT_ITS ---
EXAMINATION: CT HEAD WITHOUT CONTRAST CLINICAL INFORMATION: Head injury COMPARISON: 05/09/2020 TECHNIQUE: Contiguous axial imaging was performed from the skull base to vertex without intravenous administration of contrast. This CT examination was performed using dose optimization techniques as appropriate, variously including the following: *Automated exposure control *Adjustment of mA and/or kV according to patient size (this includes techniques or standardized protocols for targeted exams where dose is matched to indication/reason for exam; i.e. extremities or head) *Use of iterative reconstruction technique DLP: 714 mGy-cm FINDINGS: There is no evidence of acute intracranial hemorrhage or territorial infarction. No abnormal mass effect or midline shift is seen. [place] to white matter differentiation is well preserved. No extra-axial fluid collections are identified. The ventricles are normal in size. There is mild periventricular white matter hypoattenuation consistent with chronic small vessel ischemic disease. The osseous structures and soft tissues are normal. There is partial opacification of the bilateral ethmoid air cells and left frontal sinus. The mastoid air cells are well-aerated. CT/CT head/brain wo con IMPRESSION: No acute intracranial pathology.
[2021-10-22 00:53] VITALS: BP 167/85; PULSE 65; O2SAT 98
[2021-10-22 00:55] VITALS: BP 118/63; PULSE 54; RESP 18; O2SAT 99; BMI 25.8
[2021-10-22 01:05] VITALS: BP 137/68; PULSE 54; RESP 18; TEMP 36.8; O2SAT 99
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
[2021-10-22 02:00] VITALS: BP 118/73; PULSE 44; O2SAT 99
--- NOTE | 2021-10-22 02:37 | PC.NURSE ---
spoke w provider, unsure as to pt baseline, query altered, unclear answers to questioning. CT scan pending.
[2021-10-22] MEDS: Acetaminophen 325 MG TABLET 650 MG PO (02:44)
[2021-10-22] MEDS: Diphth,Pertus(ACell),Tet Adult 0.5 ML SYRINGE IM (02:46)
--- NOTE | 2021-10-22 02:51 | PC.NURSE ---
medicated per provider order, tdap given right deltoid. pt tolerated well.
[2021-10-22 03:31] VITALS: BP 129/73; PULSE 48; RESP 18; TEMP 36.9; O2SAT 99
== END 2021-10-22 03:36 | disposition home or self-care (01) ==
LOC: HO.ED 01:51
PROVIDERS: Emergency Provider Emergency Medicine; PCP Internal Medicine
DX: S01.01XA Laceration without foreign body of scalp, initial encounter (principal); J45.909 Unspecified asthma, uncomplicated; W20.8XXA Other cause of strike by thrown, projected or falling object, initial encounter; Y93.9 Activity, unspecified; Y92.9 Unspecified place or not applicable; Y99.9 Unspecified external cause status
CPT/HCPCS: 70450; 90471; 90715; 99284